=== PATIENT | female | born 1985 | race Two or more races ===

== ENCOUNTER 2022-06-19 07:45 | Emergency (ER) | payer SELFPAY ==
[~2022-06-19] VITALS: Ht 167.6 cm; Wt 100.0 kg
[2022-06-19 07:51] VITALS: BP 148/107
[2022-06-19 09:03] LABS: BASOPHILS % 0.6 % (0.0-2.0); EOSINOPHILS % 0.1 % (0.0-5.0); HEMATOCRIT. 47.1 % (36.0-48.0); HEMOGLOBIN. 16.1 g/dL (12.0-16.0); LYMPHOCYTES % 13.3 % (20.0-50.0); MEAN CORPUSCULAR VOLUME 87.9 fL (81.0-99.0); MEAN PLATELET VOLUME 7.3 fl (7.4-10.4); MONOCYTES % 5.1 % (2.0-8.0); NEUTROPHILS % 80.9 % (40.0-76.0); PLATELET 362 x1000/uL (130-400); RED BLOOD CELL COUNT 5.36 mill/uL (4.2-5.4)
[2022-06-19 09:11] LABS: CHLORIDE 103 mEq/L (98-107)
[2022-06-19] MEDS ORDERED: SODIUM CHLORIDE 0.9% 1,000 ML IV ONE (09:15)
[2022-06-19 10:11] LABS: B-HCG QUANTITATIVE 3168 mIU/mL (<3)
[2022-06-19 10:28] LABS: CLARITY URINE CLOUDY (CLEAR); COLOR URINE RED (YELLOW); KETONES URINE NEGATIVE (NEGATIVE); LEUKOCYTE ESTERASE URINE TRACE (NEGATIVE); NITRITE URINE NEGATIVE (NEGATIVE); OCCULT BLOOD URINE 3+ (NEGATIVE); PH URINE 6.5 (4.5-8.0); PROTEIN URINE 1+ (NEGATIVE); SPECIFIC GRAVITY URINE 1.009 (1.005-1.030); UROBILINOGEN URINE 0.2 E.U./dL (0.2-1.0)
[2022-06-19] MEDS ORDERED: TOPUD PO (11:21)
[2022-06-19] MEDS ORDERED: MISOPROSTOL 200MCG TABLET PO ONE (11:30)
== END 2022-06-19 12:23 | disposition home or self-care (01) ==
LOC: ER 07:45
DX: O02.1 Missed abortion (principal)
CPT/HCPCS: 36415; 76830; 76856; 80053; 81003; 81025; 84702; 85025; 86850; 86900; 86901; 96360; 99284; J7030